=== PATIENT | female | born 1955 | race Hispanic/Latino ===

== ENCOUNTER 2018-11-21 21:51 | Emergency (ER) | payer MEDICARE, OTHER ==
[~2018-11-21] VITALS: Ht 144.8 cm; Wt 101.6 kg
[2018-11-21] MEDS ORDERED: HYDROCODONE/APAP 10MG-325MG TAB PO STA (23:25)
[2018-11-21] MEDS ORDERED: ONDANSETRON HCL 4 MG ORAL DISINTEGRATING TAB PO STA (23:25)
[2018-11-21] MEDS ORDERED: DIATRIZOATE MEGL/DIATRIZOA SOD 30 ML BTL PO ONE (23:40)
--- NOTE | 2018-11-22 01:40 | Diagnostic Imaging Report ---
EXAMINATION: CT of the abdomen and pelvis without contrast. TECHNIQUE: Spiral CT images of the abdomen and pelvis were performed from the lung bases to the lesser trochanters. No intravenous contrast was given per physician's request. Oral dilute Gastrografin was given. Coronal and sagittal reformatted images were obtained. COMPARISON: None. CLINICAL HISTORY:Abdominal pain, periumbilical hernia, rule out strangulated hernia DISCUSSION: ABSENCE OF INTRAVENOUS CONTRAST DECREASES SENSITIVITY FOR DETECTION OF FOCAL LESIONS AND VASCULAR PATHOLOGY. ABDOMEN/PELVIS: LOWER THORAX: Unremarkable. HEPATOBILIARY: No focal hepatic lesions. No intra or extrahepatic biliary ductal dilation. GALLBLADDER: Peripherally calcified stones in the gallbladder lumen which measure 1.7 and 1.8 cm. No wall thickening or pericholecystic fluid. SPLEEN: No splenomegaly. PANCREAS: No focal masses or ductal dilatation. ADRENALS: No adrenal nodules. KIDNEYS/URETERS: Right kidney is absent. Left kidney is unremarkable, without stones, hydronephrosis or contour abnormalities PELVIC ORGANS/BLADDER: Bladder and uterus are unremarkable. No adnexal masses. PERITONEUM/RETROPERITONEUM: No free air or fluid. LYMPH NODES: No intra-abdominal,retroperitoneal, pelvic or inguinal lymphadenopathy. VESSELS: Minimal atherosclerotic calcification of the distal abdominal aorta GI TRACT: Mildly dilated loops of mid ileum with a maximum diameter of 3.2-3.3 cm proximal to the hernia opening. A single loop of mildly dilated mid ileum has a central/intraluminal tubular fat containing component, likely representing an intussusception (series 2, image 59). This portion of the bowel shows no definite wall thickening. The distal as well as terminal portions of the ileum which are distal to the hernia sac are decompressed. Oral contrast is noted in the jejunum and proximal ileum, without dilation or wall thickening. Colon is unremarkable. Appendix is well identified and normal in caliber. BONES AND SOFT TISSUES: No aggressive lytic lesions. Degenerative disc changes in the lower thoracic and lumbosacral spine. Grade 1 anterolisthesis of L5-S1 secondary to bilateral pars interarticularis defects. 18.6 x 6.3 x 10.9 cm fat and bowel containing umbilical hernia, with hernia neck measuring approximately 4.5 x 5.0 cm (series 2, image 51 and sagittal image 95). A small amount of free fluid is noted in the hernia sac (for example series 2, image 51 and 54). No definite wall thickening is noted in the bowel loops, however, this is limited by lack of intravenous contrast. IMPRESSION: 1. Large umbilical hernia containing mesenteric fat and multiple loops of small bowel. Although the hernia has a relatively wide neck, there are mildly dilated loops of small bowel proximal to the hernia, consistent with small bowel obstruction. Although there are no dilated bowel loops inside the hernia sac, the presence of free fluid is suspicious for impending strangulation. The lack of intravenous contrast precludes from assessment of bowel wall attenuation/enhancement. 2. Findings in a single loop of mildly dilated mid ileum likely represent transient intussusception. 3. Cholelithiasis, without CT evidence of cholecystitis. Signed by: Dr. Justin Lee M.D. on 11/22/2018 1:37 AM
--- NOTE | 2018-11-22 03:19 | NUR ---
Pt signed out AMA, Dr Collier spoke with patient and family member. pt states she [place] and is going home tomorrow and already has appointment to see surgeon on . pt awake alert skin w/d resp nonlab. nad noted, appears capable of signing out AMA. states pain is improved and she feels better. pt read and signed AMA form, states she will return if worse.
== END 2018-11-22 03:19 | disposition home or self-care (01) ==
LOC: ER 21:51
DX: R10.84 Generalized abdominal pain (principal); R11.0 Nausea
CPT/HCPCS: 74176; 99283; Q0162